=== PATIENT | female | born 1980 | race Caucasian/White ===

== ENCOUNTER → 2020-02-23 15:13 | Outpatient (CLI) | payer OTHER, SELFPAY ==
--- NOTE | ~2020-02-23 | US_ITS ---
US thyroid INDICATION: Follow-up thyroid nodule. Previous benign right and fine-needle aspiration biopsy. TECHNIQUE: Real-time sonographic images of the thyroid gland were obtained. COMPARISON: Ultrasound dated 10/24/2018 FINDINGS: The right thyroid lobe measures 6 x 2.6 x 1.5 cm. The left thyroid lobe measures 3.5 x 0.9 x 1.2 cm. There is a dominant solid hyperechoic solid mass which is wider than tall, smooth margins and no internal calcifications measuring 3.7 x 2.2 x 2.5 cm compared with 4 x 3 x 3.3 cm on prior exa mination, TR 3. No discrete left thyroid masses are identified. IMPRESSION: 1. Decreased size of right thyroid mass compared with prior examination. Per clinical history this w as biopsy proven benign. Recommend annual clinical follow-up with repeat sonogram if changes occur on physical examination. Reviewed, dictated and finalized at location A. IMPRESSION: 1. Decreased size of right thyroid mass compared with prior examination. Per c linical history this was biopsy proven benign. Recommend annual clinical follow-up with repeat sonogram if changes occur on ph ysical examination.
== END ==
PROVIDERS: Visit Provider Otolaryngology
DX: E04.1 Nontoxic single thyroid nodule (principal)
CPT/HCPCS: 76536

== ENCOUNTER → 2021-02-27 15:50 | Outpatient (CLI) | payer OTHER, SELFPAY ==
--- NOTE | ~2021-02-27 | US_ITS ---
EXAMINATION: US thyroid DATE: 02/27/2021 16:05 INDICATION: Nontoxic single thyroid nodule. TECHNIQUE: Multiple ultrasound images of the thyroid were obtained. COMPARISON: Ultrasound 02/23/2020, 10/24/2018 FINDINGS: The right thyroid lobe measures 5.8 x 2.8 x 3.0 cm. The left thyroid lobe measures 3.7 x 0.6 x 1.5 c m. In the right thyroid lobe, there is a 3.8 cm solid, hypoechoic, [id number]-ntug-rngi nodule with yoshi h margin without echogenic foci (TI-RADS TR4), stable from 11/09/18 when biopsy was benign. IMPRESSION: 1. Stable right thyroid nodule, likely benign. Reviewed, dictated and finalized at location A.
== END ==
PROVIDERS: Visit Provider Otolaryngology
DX: E04.1 Nontoxic single thyroid nodule (principal)
CPT/HCPCS: 76536

== ENCOUNTER → 2021-12-01 10:22 | Outpatient (CLI) | payer OTHER, SELFPAY ==
--- NOTE | ~2021-12-01 | MM_ITS ---
EXAMINATION: MM screening richelle BI w mary kay HISTORY: Screening TECHNIQUE: Craniocaudal and mediolateral oblique 3-D tomosynthesis images were obtained and synthetic 2-D images were generated. CAD analysis was submitted and interpreted. COMPARISON: No prior mammogram is available for comparison at this institution. BREAST PARENCHYMAL COMPOSITION: The breasts are heterogeneously dense, which may obscure small masses . FINDINGS: There is no evidence of suspicious mass, calcification, or architectural distortion to sugg est malignancy in either breast. There has been no suspicious interval change. IMPRESSION: 1. No mammographic evidence of malignancy. 2. Recommend routine screening mammography in one year. BI-RADS Category 1: Negative Reviewed, dictated and finalized at location A.
== END ==
PROVIDERS: PCP Obstetrics & Gynecology; Visit Provider Obstetrics & Gynecology
DX: Z12.31 Encounter for screening mammogram for malignant neoplasm of breast (principal)
CPT/HCPCS: 77063; 77067

== ENCOUNTER → 2022-12-17 16:07 | Outpatient (CLI) | payer OTHER, SELFPAY ==
--- NOTE | ~2022-12-17 | MM_ITS ---
EXAMINATION: MM screening richelle BI w mary kay HISTORY: Screening mammogram TECHNIQUE: Craniocaudal and mediolateral oblique 3-D tomosynthesis images were obtained and synthetic 2-D images were generated. CAD analysis was submitted and interpreted. COMPARISON: 12/01/2021 BREAST PARENCHYMAL COMPOSITION:The breasts are heterogeneously dense, which may obscure small masses. FINDINGS: Stable microcalcifications at the outer right breast. No suspicious mass, calcification, or architectural distortion are identified in either breast to suggest malignancy. There has been no villatoro spicious interval change. IMPRESSION: No mammographic evidence of malignancy. Recommend routine screening mammography in one year. BI-RADS Category 2: Benign finding(s). Reviewed, dictated and finalized at location .
== END ==
PROVIDERS: PCP Obstetrics & Gynecology; Visit Provider Obstetrics & Gynecology
DX: Z12.31 Encounter for screening mammogram for malignant neoplasm of breast (principal)
CPT/HCPCS: 77063; 77067

== ENCOUNTER → 2023-03-03 15:48 | Outpatient (CLI) | payer OTHER, SELFPAY ==
--- NOTE | ~2023-03-03 | US_ITS ---
EXAMINATION: US thyroid DATE: 03/03/2023 16:24 INDICATION: Nontoxic single thyroid nodule. TECHNIQUE: Multiple ultrasound images of the thyroid were obtained. COMPARISON: Ultrasound 02/27/2021, 10/24/18 FINDINGS: The right thyroid lobe measures 6.8 x 2.6 x 2.7 cm. The left thyroid lobe measures 3.5 x 1.0 x 1.0 c m. In the right thyroid lobe, there is a 4.7 x 2.6 x 3.2 cm solid, hypoechoic, wider than tall nodul e with smooth margin without echogenic foci (TI-RADS TR4) that measured 4.0 x 3.0 x 3.3 cm on 10/24/18. Biopsy on 11/09/18 was benign. IMPRESSION: 1. Stable benign right thyroid nodule. Reviewed, dictated and finalized at location A.
== END ==
PROVIDERS: PCP Obstetrics & Gynecology; Visit Provider Otolaryngology
DX: E04.1 Nontoxic single thyroid nodule (principal)
CPT/HCPCS: 76536

== ENCOUNTER 2024-04-06 15:02 | Outpatient (CLI) | payer OTHER, SELFPAY ==
--- NOTE | ~2024-04-06 | MM_ITS ---
EXAMINATION: MM screening richelle BI w mary kay HISTORY: Screening mammogram TECHNIQUE: Craniocaudal and mediolateral oblique 3-D tomosynthesis images were obtained and synthetic 2-D images were generated. CAD analysis was submitted and interpreted. COMPARISON: 12/17/2022, 12/01/2021 BREAST PARENCHYMAL COMPOSITION:Dense: The breasts are extremely dense, which lowers the sensitivity o f mammography. FINDINGS: No suspicious mass, calcification, or architectural distortion are identified in either dash ast to suggest malignancy. There has been no suspicious interval change. IMPRESSION: No mammographic evidence of malignancy. Recommend routine screening mammography in one year. BI-RADS Category 1: Negative Reviewed, dictated and finalized at location M.
== END 2024-04-06 15:03 | disposition home or self-care (01) ==
LOC: MICIMG 15:03
PROVIDERS: PCP Obstetrics & Gynecology; Visit Provider Obstetrics & Gynecology
DX: Z12.31 Encounter for screening mammogram for malignant neoplasm of breast (principal)
CPT/HCPCS: 77063; 77067

== ENCOUNTER 2025-05-07 07:04 | Day surgery (SDC) | payer OTHER, SELFPAY ==
--- OUTSIDE RECORDS SUMMARY | 2025-04-24 12:30 | XMS_ITS ---
Author Organization [facility] ([address]) Address [address] [place] [address] Care Team Providers Care Cook Tortilla Name Role Phone Brant Rod Primary Care Provider Manju Abreu Unavailable [phone] Bear Faustin Unavailable [phone] REASON FOR VISIT SCIT (Aeroallergen) Social History Sex Assigned At : Social History Observation Description Sex Assigned At Female Encounters Encounter Location Date Provider Diagnosis [facility] [address] [place] [address] 04/24/2025 Bear Faustin Plan Of Treatment Next Appt Details Provider Name:Bear Faustin , 05/29/2025 09:30:00 AM, [address], [address], Provider Name:Manju babcock, 07/16/2025 07:30:00 AM, [address], [place], [address], Progress Notes * Jennifer PARKDOB:[birth year] (44 yo F)Acc No.[id number]:04/24/2025 SCIT-Aeroallergen Patient: yCndi OLIVEROSbeth Provider: Jose Faustin MD :1980 A ge:44 Y S ex:Female Date:04/24/2025 Address:[address] [place], [place] [id number] Pcp:Rod Guo Subjective: * Chief Complaints: * 1 . SCIT (Aeroallergen). * Medical History: Objective: * Vitals: Assessment: Plan: * Treatment: * Billing Information: * Visit Code: * Procedure Codes: * Electronic signature of Patsadiq Faustin MD, FAAAAI on 05/07/2025 at 07:07 AM CDT Sign off status: Pending * Provider: Jose Faustin MD Date: 0 04/24/2025 Generated for Fahadi idalmis/Ashley/eTgayathrismitting on: 1 07:07 AM CDT
[2025-05-07] VITALS (12 sets, daily range): BP systolic 87–118; BP diastolic 40–72; PULSE 68–95; RESP 12–20; TEMP 36.4–37; O2SAT 96–100
--- NOTE | ~2025-05-07 | CT_ITS ---
EXAMINATION: CT abdomen pelvis w con DATE: 05/07/2025 08:30 INDICATION: Right lower quadrant abdominal pain. TECHNIQUE: Computed tomography (CT) of the abdomen and pelvis was performed with 100 mL Omnipaque 350 intravenous contrast. Automated exposure control and iterative reconstruction technique were employed. The dose-length product was 194.94 mGy-cm. COMPARISON: None. FINDINGS: The visualized portions of the lung bases are clear without pneumonia or pleural effusion. The heart size is normal. No pericardial effusion. The liver, gallbladder, spleen, pancreas, adrenal glands, and kidneys are normal. There is an intrauterine device in expected position. There are appendicoliths in the appendix, which is fluid-filled and dilated to 15 mm with surrounding fat stranding, consistent with appendicitis. There is physiologic fluid in the pelvis. There are no pathologically enlarged lymph nodes. There is mild lumbar spondylosis. IMPRESSION: 1. Acute appendicitis. Reviewed, dictated and finalized at location E. IMPRESSION: 1. Acute appendicitis.
--- OUTSIDE RECORDS SUMMARY | 2025-05-07 07:07 | XMS_ITS | Patient Health Record ---
Author Organization [facility] [employer] [place] ([address]) Address [address] [place] [address] Care Team Providers Care Wood Cabinetmaker Name Role Phone Rod Guo Primary Care Provider Manju Abreu Unavailable [phone] Bear Faustin Unavailable [phone] Allergies No Known Allergies Reason For Referral No Information Medications Medication SIG (Take, Route, Frequency, Duration) Notes Start Date End Date Status Auvi-Q 0.3 MG/0.3ML as directed intramuscularly once; Duration: 30 days Active FEXOFENADINE HYDROCHLORIDE 180 mg 1 tab(s) orally twice a day; Duration: 90 days Active Mirena (52 MG) 52 MG 1 EA BY INTRAUTERINE ADMINISTRATION ONCE; Duration: 1 DOSE(S) *Please review and pick correct strength-formula tion from [employer] options. If intended option is not shown, discontinue and re-order from Quick Search* Active NASAL WASHES N/A as directed intranasally as needed; Duration: 1 days Active PROzac 10 MG 1 cap(s) orally once a day; Duration: 30 day(s) Active AUVI -Q 0.3 mg as directed intramuscularly once; Duration: 30 days Active Famotidine 20 MG 1 tab(s) orally 2 times a day 11/30/2023 Active FISH OIL 1000 mg 1 cap(s) orally once a day Active SIT (TRADITIONAL) variable per schedule SC per schedule; Duration: to be determined Active Lessina 0.1-20 MG-MCG 1 tab(s) orally once a day; Duration: 28 day(s) Not-Taking VITAMIN D3 50 mcg 1 tab(s) orally once a day Active Famotidine 20 MG 1 tablet Orally Twice a day; Duration: 90 days Active Azelastine HCl 137 MCG/SPRAY 2 spray(s) intranasally 2 times a day; Duration: 30 day(s) Not-Taking MULTIVITAMIN Multiple Vitamins 1 tab(s) orally once a day Active Fluticasone Propionate 50 MCG/ACT 1 spray in each nostril Nasally Twice a day; Duration: 30 days Active VANICREAM MOISTURIZING CREAM N/A as necessary Apply to external surfaces as often as needed to face, hands, feet or body For daily use by the entire family; Duration: 30 day(s) Active Collagen Active VANICREAM GENTLE FACIAL CLEANSER for Sensitive Skin apply to face as you would soap and rinse off thoroughly topically daily; Duration: 30 day(s) Active Vitamin D3 50 MCG 1 TAB(S) ORALLY ONCE A DAY *Please review and pick correct strength-formula tion from [employer] options. If intended option is not shown, discontinue and re-order from Quick Search* Active VANICREAM LITE LOTION - 1 bella applied topically 2 times a day; Duration: 30 day(s) Active Multivitamin - 1 tab(s) orally once a day Active PATADAY 0.2% 1 gtt in each affected eye once a day; Duration: 10 day(s) Active Fexofenadine HCl 180 MG 1 tab(s) orally twice a day; Duration: 90 days Active DESONIDE 0.05% 1 bella applied topically bid; Duration: 14 day(s) Active Immunizations Vaccine Route Administration Date Status Comme nts Flucelvax IM Intramuscular 05/19/2021 Administered Flucelvax Unknown 05/02/2022 Administered NOC Flucelevax Quadrivalent Unknown 05/19/2021 Administered Covid 19 (Pfizer) Unknown 10/18/2020 Administered Covid 19 (Pfizer) Unknown 11/10/2020 Administered Covid 19 (Pfizer) Unknown 08/07/2021 Administered Social History Tobacco Use: Social History Observation Description Date Details (start date - stop date) Never Smoker NA - NA Sex Assigned At : Social History Observation Description Sex Assigned At Female Smoking Smart Form: Question Answer Notes Are you a: never smoker Tobacco Control (Standard) Question Answer Notes Tobacco use: Nonsmoker AUDIT-C (Standard) Question Answer Notes Did you have a drink contain ing alcohol in the past year? Yes How often did you have a dri nk containing alcohol in the past year? 2 to 4 times a month (2 points) How many drinks did you have on a typical day when you were drinking in the past year? 1 or 2 drinks (0 point) How often did you have six o r more drinks on one occasion in the past year? Never (0 point) Points 2 Interpretation Negative Problems Problem Type SNOMED Code ICD Code Onset Dates Problem Status W/U Status Risk Notes Problem Eruption of skin (653648517) Rash and other nonspecific skin eruption (R21) Active confirmed Problem Non-toxic single thyroid nodule (690587554) Nontoxic single thyroid nodule (E04.1) Active confirmed Problem Chronic allergic conjunctivitis (85294000) Other chronic allergic conjunctivitis (H10.45) Active confirmed Problem Allergic rhinitis caused by pollen (disorder) (11683674) Allergic rhinitis due to pollen (J30.1) Active confirmed Problem Allergic rhinitis caused by animal hair and dander (188657452466068) Allergic rhinitis due to animal (cat) (dog) hair and dander (J30.81) Active confirmed Problem Allergic rhinitis (18732430) Other allergic rhinitis (J30.89) Active confirmed Problem Contact dermatitis caused by cosmetics (61258216) Irritant contact dermatitis due to cosmetics (L24.3) Active confirmed Problem Dermatitis (557916787) Dermatitis, unspecified (L30.9) Active confirmed Vital Signs Oximetry 99 % 01/15/2025 Blood pressure diastolic 64 mm Hg 01/15/2025 Height 61 in 01/15/2025 Blood pressure systolic 99 mm Hg 01/15/2025 Weight 105.4 lbs 01/15/2025 BMI 19.91 kg/m2 01/15/2025 Encounters Encounter Location Date Provider Diagnosis [facility] [address] [place], [place] [address] [address] [address] 03/27/2025 Bear Faustin Allergic rhinitis du e to pollen J30.1 ; Other allergic rhinitis J30.89 ; Allergic rhinitis due to animal (cat) (dog) hair and dander J30.81 and Other chronic allergic conjunctivitis H10.45 [place] [address] [facility] [address] [phone] 03/20/2025 Bear Faustin Allergic rhinitis du e to pollen J30.1 ; Other allergic rhinitis J30.89 ; Allergic rhinitis due to animal (cat) (dog) hair and dander J30.81 and Other chronic allergic conjunctivitis H10.45 [facility] [address] [place], [place] [address] [address] [address] 02/20/2025 Bear Faustin Allergic rhinitis du e to pollen J30.1 ; Other allergic rhinitis J30.89 ; Allergic rhinitis due to animal (cat) (dog) hair and dander J30.81 and Other chronic allergic conjunctivitis H10.45 [facility] [address] [place], [place] [address] [address] [place] [phone] 01/23/2025 Bear Faustin Allergic rhinitis du e to pollen J30.1 ; Other allergic rhinitis J30.89 ; Allergic rhinitis due to animal (cat) (dog) hair and dander J30.81 and Other chronic allergic conjunctivitis H10.45 [facility] [address] [place], [place] [address] [address] [address] 12/26/2024 Bear Faustin Allergic rhinitis du e to pollen J30.1 ; Other allergic rhinitis J30.89 ; Allergic rhinitis due to animal (cat) (dog) hair and dander J30.81 and Other chronic allergic conjunctivitis H10.45 [facility] [address] [place], [place] [address] [address] [place] [phone] 11/27/2024 Bear Ramin Allergic rhinitis du e to pollen J30.1 ; Other allergic rhinitis J30.89 ; Allergic rhinitis due to animal (cat) (dog) hair and dander J30.81 and Other chronic allergic conjunctivitis H10.45 [facility] [address] [place], [place] [address] [address] [place] [phone] 10/30/2024 Bear Ramin Allergic rhinitis du e to pollen J30.1 ; Other allergic rhinitis J30.89 ; Allergic rhinitis due to animal (cat) (dog) hair and dander J30.81 and Other chronic allergic conjunctivitis H10.45 [facility] [address] [place], [place] [address] [address] [place] [phone] 10/02/2024 Bear Ramin Allergic rhinitis du e to pollen J30.1 ; Other allergic rhinitis J30.89 ; Allergic rhinitis due to animal (cat) (dog) hair and dander J30.81 and Other chronic allergic conjunctivitis H10.45 [facility] [address] [place] [phone] 09/04/2024 Bear Faustin Allergic rhinitis du e to pollen J30.1 ; Other allergic rhinitis J30.89 ; Allergic rhinitis due to animal (cat) (dog) hair and dander J30.81 and Other chronic allergic conjunctivitis H10.[address] [phone] 08/03/2024 Bear Faustin Allergic rhinitis du e to pollen J30.1 ; Other allergic rhinitis J30.89 ; Allergic rhinitis due to animal (cat) (dog) hair and dander J30.81 and Other chronic allergic conjunctivitis H10.[address] [address] 06/26/2024 Bear Faustin Allergic rhinitis du e to pollen J30.1 ; Other allergic rhinitis J30.89 ; Allergic rhinitis due to animal (cat) (dog) hair and dander J30.81 and Other chronic allergic conjunctivitis H10.45 [facility] [address] [place] [phone] 05/24/2024 Bear Faustin Allergic rhinitis du e to pollen J30.1 ; Other allergic rhinitis J30.89 ; Allergic rhinitis due to animal (cat) (dog) hair and dander J30.81 and Other chronic allergic conjunctivitis H10.45 [facility] [address] [place] [phone] 05/01/2025 Bear Faustin Allergic rhinitis du e to pollen J30.1 ; Other allergic rhinitis J30.89 ; Allergic rhinitis due to animal (cat) (dog) hair and dander J30.81 and Other chronic allergic conjunctivitis H10.45 [facility] [address] [place] [phone] 04/03/2025 Bear Faustin Allergic rhinitis du e to pollen J30.1 ; Other allergic rhinitis J30.89 ; Allergic rhinitis due to animal (cat) (dog) hair and dander J30.81 and Other chronic allergic conjunctivitis H10.45 [facility] [address] [facility] [address] [place] [address] 01/15/2025 Manju King Rash and other nonspecific skin eruption R21 ; Allergic rhinitis due to pollen J30.1 ; Dermatitis, unspecified L30.9 ; Allergic rhinitis due to animal (cat) (dog) hair and dander J30.81 ; Other chronic allergic conjunctivitis H10.45 ; Other allergic rhinitis J30.89 and Irritant contact dermatitis due to cosmetics L24.[address] [phone] 12/28/2024 Manju King [address] [phone] 01/15/2025 Manju King Assessments Encounter Date Diagnosis (ICD Code) Assessment Notes Treatment Notes Treatment Clinical Notes Section Notes 05/24/2024 Allergic rhinitis due to pollen (ICD-10 - J30.1) 06/26/2024 Allergic rhinitis due to pollen (ICD-10 - J30.1) 08/03/2024 Allergic rhinitis due to pollen (ICD-10 - J30.1) 09/04/2024 Allergic rhinitis due to pollen (ICD-10 - J30.1) 10/02/2024 Allergic rhinitis due to pollen (ICD-10 - J30.1) 10/30/2024 Allergic rhinitis due to pollen (ICD-10 - J30.1) 11/27/2024 Allergic rhinitis due to pollen (ICD-10 - J30.1) 12/26/2024 Allergic rhinitis due to pollen (ICD-10 - J30.1) 01/15/2025 Allergic rhinitis due to pollen (ICD-10 - J30.1) Jennifer clearly suffers from atopic disease based upon our skin testing and history. - Increased symptoms this Spring and Fall. - Continues on SCIT via MM without issues, continues double premedication. - Not due for SCIT dosing today. - Continue medication regimen as above. - Again discussed increasing SCIT frequency PRN for allergy symptoms. Consider reformulation if symptoms continue to worsen in peak season. If symptoms remain managed, consider holding SCIT as she has now been on MM for just over three years. - Follow-up in 6 months for evaluation and management 01/15/2025 Rash and other nonspecific skin eruption (ICD-10 - R21) Jennifer presents today reporting pruritus on her chest and trunk that comes and goes. Reports if she scratches she develops erythematous welts. She has noticed hot showers worsen her symptoms, otherwise denies clear triggers. She also denies associated symptoms. Symptoms have been occurring > 6 weeks. - Consider dermatographic urticaria vs other. - Jennifer remains taking Dianne QD and Pepcid QD with benefit. Discussed holding Pepcid. - Ordered labs to check for underlying thyroid, mast cell, and autoimmune diseases. Positive DARIN screening, otherwise unremarkable. Jennifer established care with Rheumatology at [facility], reports she was told further work-up was not required. - Continue avoidance of fragrances, dyes and known irritant contact reactions as below. - Discussed journaling and taking photos if symptoms recur 01/23/2025 Allergic rhinitis due to pollen (ICD-10 - J30.1) 02/20/2025 Allergic rhinitis due to pollen (ICD-10 - J30.1) 03/20/2025 Allergic rhinitis due to pollen (ICD-10 - J30.1) 03/27/2025 Allergic rhinitis due to pollen (ICD-10 - J30.1) 04/03/2025 Allergic rhinitis due to pollen (ICD-10 - J30.1) 05/01/2025 Allergic rhinitis due to pollen (ICD-10 - J30.1) 05/01/2025 Other allergic rhinitis (ICD-10 - J30.89) 04/03/2025 Other allergic rhinitis (ICD-10 - J30.89) 03/27/2025 Other allergic rhinitis (ICD-10 - J30.89) 03/20/2025 Other allergic rhinitis (ICD-10 - J30.89) 02/20/2025 Other allergic rhinitis (ICD-10 - J30.89) 01/23/2025 Other allergic rhinitis (ICD-10 - J30.89) 01/15/2025 Dermatitis, unspecified (ICD-10 - L30.9) Continues working avoidance of known irritant contact reactions. Continue moisturization. Apply desonide PRN, mix with vaseline. Eyelids remain improved 12/26/2024 Other allergic rhinitis (ICD-10 - J30.89) 11/27/2024 Other allergic rhinitis (ICD-10 - J30.89) 10/30/2024 Other allergic rhinitis (ICD-10 - J30.89) 10/02/2024 Other allergic rhinitis (ICD-10 - J30.89) 09/04/2024 Other allergic rhinitis (ICD-10 - J30.89) 08/03/2024 Other allergic rhinitis (ICD-10 - J30.89) 06/26/2024 Other allergic rhinitis (ICD-10 - J30.89) 05/24/2024 Other allergic rhinitis (ICD-10 - J30.89) 05/24/2024 Allergic rhinitis due to animal (cat) (dog) hair and dander (ICD-10 - J30.81) 06/26/2024 Allergic rhinitis due to animal (cat) (dog) hair and dander (ICD-10 - J30.81) 08/03/2024 Allergic rhinitis due to animal (cat) (dog) hair and dander (ICD-10 - J30.81) 09/04/2024 Allergic rhinitis due to animal (cat) (dog) hair and dander (ICD-10 - J30.81) 10/02/2024 Allergic rhinitis due to animal (cat) (dog) hair and dander (ICD-10 - J30.81) 10/30/2024 Allergic rhinitis due to animal (cat) (dog) hair and dander (ICD-10 - J30.81) 11/27/2024 Allergic rhinitis due to animal (cat) (dog) hair and dander (ICD-10 - J30.81) 12/26/2024 Allergic rhinitis due to animal (cat) (dog) hair and dander (ICD-10 - J30.81) 01/15/2025 Allergic rhinitis due to animal (cat) (dog) hair and dander (ICD-10 - J30.81) Follow allergen avoidance, meds and continue SCIT as an adjunctive treatment to current regimen 01/23/2025 Allergic rhinitis due to animal (cat) (dog) hair and dander (ICD-10 - J30.81) 02/20/2025 Allergic rhinitis due to animal (cat) (dog) hair and dander (ICD-10 - J30.81) 03/20/2025 Allergic rhinitis due to animal (cat) (dog) hair and dander (ICD-10 - J30.81) 03/27/2025 Allergic rhinitis due to animal (cat) (dog) hair and dander (ICD-10 - J30.81) 04/03/2025 Allergic rhinitis due to animal (cat) (dog) hair and dander (ICD-10 - J30.81) 05/01/2025 Allergic rhinitis due to animal (cat) (dog) hair and dander (ICD-10 - J30.81) 05/01/2025 Other chronic allergic conjunctivitis (ICD-10 - H10.45) 04/03/2025 Other chronic allergic conjunctivitis (ICD-10 - H10.45) 03/27/2025 Other chronic allergic conjunctivitis (ICD-10 - H10.45) 03/20/2025 Other chronic allergic conjunctivitis (ICD-10 - H10.45) 02/20/2025 Other chronic allergic conjunctivitis (ICD-10 - H10.45) 01/23/2025 Other chronic allergic conjunctivitis (ICD-10 - H10.45) 01/15/2025 Other chronic allergic conjunctivitis (ICD-10 - H10.45) Given ocular signs and symptoms, I encouraged allergy avoidance measures and meds as above. Will add intraocular antihistamine/mast cell stabilizer, PRN and continue SCIT as an adjunctive measure 12/26/2024 Other chronic allergic conjunctivitis (ICD-10 - H10.45) 11/27/2024 Other chronic allergic conjunctivitis (ICD-10 - H10.45) 10/30/2024 Other chronic allergic conjunctivitis (ICD-10 - H10.45) 10/02/2024 Other chronic allergic conjunctivitis (ICD-10 - H10.45) 09/04/2024 Other chronic allergic conjunctivitis (ICD-10 - H10.45) 08/03/2024 Other chronic allergic conjunctivitis (ICD-10 - H10.45) 06/26/2024 Other chronic allergic conjunctivitis (ICD-10 - H10.45) 05/24/2024 Other chronic allergic conjunctivitis (ICD-10 - H10.45) 01/15/2025 Other allergic rhinitis (ICD-10 - J30.89) Follow allergen avoidance, meds and continue SCIT as an adjunctive treatment to current regimen 01/15/2025 Irritant contact dermatitis due to cosmetics (ICD-10 - L24.3) S/p patch testing with + results to : 2+ 2-Mercaptobenzothiaz ole, 1+ Colophonium/ (Colophony),1+ p-Phenylenediamine (PPD), 1+ Cinnamal/ (Cinnamic Aldehyde), 3+ Amerchol L, 1+ Carba Mix,, IR Potassium Dichromate, IR Myroxylon Pereirae Resin/ (Balsam of Emeli), 1+ Tocopherol/ DL alpha tocopherol, IR Glyceryl Monothioglycolate (GMTG), IR Toluene sulfonamide Formaldehyde Resin, 1+ Budesonide, 1+ Disperse Yellow 3, 1+ DMDM Hydantoin, IR Benzyl Alcohol, 2+ Hydroperoxies of Limone, 1+ Lidocaine, 1+ Benzoylperoxide, IR Hydroperoxides of Linalool, IR Propylene Glycol - Continues working on avoidance, will now re-enter data into [facility] database 01/15/2025 Other Plan Of Treatment Next Appt Details Provider Name:Bear Faustin , 05/29/2025 09:30:00 AM, [address] [facility], [place], [address], Provider Name:Manju babcock, 07/16/2025 07:30:00 AM, [address] [facility], [address], [place], [address], Insurance Providers Payer Name Payer Address Payer Phone Subscriber Number Group Number Insured Name Patient Relationship to Insured Coverage Start Date Coverage End Date [facility] [address] [address] [place] [id number] [phone] [id number] [place] Spouse - patient is the spouse of the insured Medical (General) History Medical History History ICD Code Angioneurotic edema, initial encounter T 78.3XXA Nontoxic single thyroid nodule E04.1 Eczema 692.9 Allergic rhinitis due to pollen J30.1 Allergic rhinitis due to animal (cat) (d og) hair and dander J30.81 Other chronic allergic conjunctivitis H1 0.45 Other allergic rhinitis J30.89 Irritant contact dermatitis due to vickey tics L24.3 Surgical History Surgery Date(Month/Year) tonsillectomy 1999
[2025-05-07 07:28] LABS: BEDSIDEPREGUCG Negative (Negative)
[2025-05-07 07:40] LABS: Add Urine Microscopic? NO; Appearance Urine Clear (Clear); Glucose Urine UA Negative (Negative); Leukocyte Esterase Ur Negative LEU/UL (Negative); Nitrate Urine Negative (Negative); Specific Grav Ur 1.020 (1.001-1.035)
[2025-05-07 07:45] LABS: Hematocrit 39.8 % (37.0-47.0); Hemoglobin 12.9 g/dL (12.0-15.0); Immature Granulocyte Percent A 0.4 % (0-0.5); Lymphocytes Absolute Auto 1.67 K/mm3 (0.9-3.2); Mean Corpuscular HGB Conc 32.4 g/dl (32-36); Mean Corpuscular Hemoglobin 29.1 pg (26-34); Mean Corpuscular Volume 89.8 fl (80-100); Nucleated Red Blood Cells Absolute Auto 0.000 K/mm3 (0.0-0.012); Nucleated Red Blood Cells Perc 0.0 % (0.0-0.2); Platelet Count Result 278 k/mm3 (150-375); Red Blood Count 4.43 M/mm3 (4.2-5.4); White Blood Count 13.2 K/mm3 (4.5-10.0)
[2025-05-07 07:53] LABS: Alanine Aminotransferase 17 U/L (6-35); Albumin Level 3.9 g/dL (3.5-5.1); Alkaline Phosphatase 58 U/L (38-126); Anion Gap 7 mmol/L (4-12); Aspartate Amino Transferase 22 U/L (14-36); Bilirubin,Total 0.8 mg/dL (0.2-1.3); Blood Urea Nitrogen 16 mg/dL (7-17); Calcium 8.7 mg/dL (8.4-10.2); Carbon Dioxide 26 mmol/L (22-30); Chloride 103 mmol/L (98-107); Estimated CRCL calculation 66 ml/min; Estimated Glomerular Filt Rate > 60; Glucose 90 mg/dL (65-110); Lipase 81 U/L (23-300); Potassium 3.7 mmol/L (3.4-5.0); Sodium 136 mmol/L (137-145); Total Protein 7.0 g/dL (6.3-8.2)
--- NOTE | 2025-05-07 08:11 | ED.ABDPAIN ---
HPI - Abdominal Pain General Chief Complaint: Abdominal Pain Stated Complaint: abd pain Time Seen by Provider: 05/07/25 07:51 Source: patient and family ( and mother) Mode of arrival: ambulatory Limitations: no limitations History of Present Illness HPI narrative: Patient presents with report of abdominal pain over the past 3-4 days. It started with epigastric abdominal pain associated with nausea but no vomiting. The pain is now settled into her right lower quadrant. She had 1 episode where she reports that her urethra hurt although denies any guadalupe dysuria otherwise. She denies any vaginal discharge or bleeding. She has amenorrhea in the setting of IUD placement earlier this year. Denies any back pain. Last bowel movement was yesterday and she denies any diarrhea, constipation, or bloody stools. No fevers. She does have an appetite. No history of kidney stone. She denies any hematuria, urgency or frequency. No previous abdominal surgery. She still has her appendix. She reports this pain has never happened before. Related Data Home Medications ?Medication ?Instructions ?Recorded ?Confirmed ?Last Taken ?Type fexofenadine-pseudoephedrine ER 1 tablet PO DAILY 02/18/23 02/18/23 Unknown History 180 mg-240 mg tablet,ext.release 24 hr (Dainne-D 24 Hour) Allergies Allergy/AdvReac Type Severity Reaction Status Date / Time No Known Allergies Allergy Verified 05/07/25 07:10 [facility] Past Medical History Medical History Allergies IUD (intrauterine device) in place Family History Family History Father Afib Sibling Asthma Sibling Brain cancer Social History Social History Social History: Smoking status: Never smoker Alcohol intake: current Substance use: never Substance use type: does not use Lack of Transportation: No Lack of Food: Never True Current Housing: I Have Housing Concerned About Future Housing: No Difficulty Paying Gas/Electric Bills: No Difficulty Paying for Meds: No Currently Unemployed: No Education: Associate Degree Difficulty w/ Childcare or Family Care: No Living arrangements: with family Additional living arrangements comments: Exam Narrative: GENERAL: Well-appearing, well-nourished, and in no acute distress. HEAD: Normocephalic, atraumatic. EYES: Non injected, non icteric ENT: Nares clear, no rhinorrhea or epistaxis. Gross auditory acuity intact. NECK: Supple. No meningismus. CHEST: Speaking in full sentences. No respiratory distress. HEART: Regular rate and rhythm. . ABDOMEN: Soft, nondistended. No rigidity or guarding. McBurney point tenderness. Rovsing sign negative. Localized peritonitis but without being frankly peritoneal. EXTREMITIES: Normal range of motion. No lower extremity edema. SKIN: Warm, dry, no rash. NEURO: No focal deficits. Alert and oriented. Answering questions. Following commands. Normal speech without aphasia or dysarthria. PSYCH: Normal mood and affect. Course Vital Signs Vital signs: Vital Signs Temperature 97.6 F 05/07/25 07:07 Pulse Rate 77 05/07/25 07:07 Respiratory Rate 17 05/07/25 07:07 Blood Pressure 118/40 L 05/07/25 07:07 Pulse Oximetry 99 05/07/25 07:07 Oxygen Delivery Room Air 05/07/25 07:07 Temperature 97.6 F 05/07/25 07:07 Pulse Rate 69 05/07/25 11:23 Respiratory Rate 16 05/07/25 11:23 Blood Pressure 94/68 L 05/07/25 11:23 Pulse Oximetry 100 05/07/25 11:23 Oxygen Delivery Room Air 05/07/25 07:07 MDM - Abdominal Pain MDM Narrative Medical decision making narrative: Patient presents with report of abdominal pain of the past 3-4 days. It started as epigastric but now has settled into the right lower quadrant. Initially associated with nausea. In the emergency department she is afebrile with vital signs notable for low diastolic blood pressure i.e. hypotension. Mean arterial pressure is 66mmHg. 1L IV fluids ordered. She has a leukocytosis with a left shift. test negative. Ondansetron morphine were ordered but patient declined. States that as long she does not move she does not have pain. CT shows acute appendicitis. Patient made NPO. Patient is informed. She is hopeful she can go same day if possible. On-call general surgeon Dr Yang does evaluate her at bedside; Carmelsyn ordered. He will discuss with OR team about the timing of her surgical intervention but is hopeful she can go home post-procedurally. Remains in the ED until taken to pre-op. Remains stable during this. Differential Diagnosis Differential diagnosis: Likely abdominal pain, acute appendicitis, calculus of kidney, constipation, diverticulitis, endometriosis, small bowel obstruction and other (ovarian pathology considered) Lab Data Attestation: I reviewed the patient's lab results. Lab results narrative: Lipase normal. Urinalysis unremarkable Chemistry only with very mild hyponatremia 05/07/25 07:27 05/07/25 07:27 Labs: Lab Results 05/07/25 05/07/25 Range/Units 07: 07:27 WBC 13.2 H (4.5-10.0) K/mm3 RBC 4.43 (4.2-5.4) M/mm3 Hgb 12.9 (12.0-15.0) g/dL Hct 39.8 (37.0-47.0) % MCV 89.8 (80-100) fl MCH 29.1 (26-34) pg MCHC 32.4 (32-36) g/dl RDW 12.2 (11.5-14.5) % Plt Count 278 (150-375) k/mm3 MPV 11.3 H (7.4-10.4) fl Immature Gran % (Auto) 0.4 (0-0.5) % Neut % (Auto) 77.5 H (45.5-73.1) % Lymph % (Auto) 12.6 L (18.3-44.2) % [place] % (Auto) 7.9 (2.6-8.5) % Eos % (Auto) 1.1 (0-4.4) % Baso % (Auto) 0.5 (0.2-1.2) % Lymph # (Auto) 1.67 (0.9-3.2) K/mm3 [place] # (Auto) 1.0 H (0.1-0.6) K/mm3 Eos # (Auto) 0.2 (0-0.3) K/mm3 Baso # (Auto) 0.1 (0.0-0.1) K/mm3 Abs Immat Gran (auto) 0.05 H (0.00-0.031) K/mm3 Absolute Neuts (auto) 10.3 H (1.3-6.7) K/mm3 Absolute Nucleated RBC 0.000 (0.0-0.012) K/mm3 Nucleated RBC % 0.0 (0.0-0.2) % Sodium 136 L (137-145) mmol/L Potassium 3.7 (3.4-5.0) mmol/L Chloride 103 (98-107) mmol/L Carbon Dioxide 26 (22-30) mmol/L Anion Gap 7 (4-12) mmol/L BUN 16 (7-17) mg/dL Creatinine 0.71 (0.7-1.0) mg/dL Estim Creat Clear Calc 66 ml/min Estimated GFR > 60 (59 - ) Glucose 90 (65-110) mg/dL Calcium 8.7 (8.4-10.2) mg/dL Total Bilirubin 0.8 (0.2-1.3) mg/dL AST 22 (14-36) U/L ALT 17 (6-35) U/L Alkaline Phosphatase 58 (38-126) U/L Total Protein 7.0 (6.3-8.2) g/dL Albumin 3.9 (3.5-5.1) g/dL Lipase 81 (23-300) U/L Urine Color Yellow (Yellow) Urine Appearance Clear (Clear) Urine pH 6.5 (5.0-9.0) Ur Specific [place] 1.020 (1.001-1.035) Urine Protein Negative (Negative) mg/dL Urine Glucose (UA) Negative (Negative) mg/dL Urine Ketones Negative (Negative) mg/dL Ur Blood (Man) Negative (Negative) Urine Nitrate Negative (Negative) Urine Bilirubin Negative (Negative) Urine Urobilinogen 0.2 (<2.0) mg/dL Leukocyte Esterase Rfl Negative (Negative) MOISÉS/UL POC Urine HCG, Qual Negative (Negative) Imaging Data Radiologist's impression: ITS Impressions Abdomen/Pelvis CT 05/07/25 08:34 IMPRESSION: 1. Acute appendicitis. Discharge Plan Discharge Clinical Impression: Acute appendicitis, Leukocytosis, Abdominal pain, RLQ Patient Disposition: Still a Patient Condition: Stable
[2025-05-07] MEDS: SODIUM CHLORIDE 0.9% IV 1,000 ML 999 ML IV CONT (08:18)
--- NOTE | 2025-05-07 09:12 | PM.IMHP ---
H&P: HPI History of Present Illness Date/Time: 05/07/25 09:12 Chief Complaint: Acute appendicitis Narrative: The patient is a 44-year-old female presenting to the emergency department complaining of severe right lower quadrant. Patient reports this episode started late last week and has progressively worsened. The patient reports the pain was initially diffuse, however has now localized to the right lower quadrant. The patient reports associated poor, nausea. Patient denies any previous similar symptomatology. Workup in the emergency department, including imaging, is significant for acute appendicitis. Review of Systems Review of Systems: All systems reviewed & are unremarkable except as noted in HPI and below PMFSH Past Medical History Medical History Allergies IUD (intrauterine device) in place Family History Family History Father Afib Sibling Asthma Sibling Brain cancer Social History Social History Social History: Smoking status: Never smoker Alcohol intake: current Substance use: never Substance use type: does not use Lack of Transportation: No Lack of Food: Never True Current Housing: I Have Housing Concerned About Future Housing: No Difficulty Paying Gas/Electric Bills: No Difficulty Paying for Meds: No Currently Unemployed: No Education: Associate Degree Difficulty w/ Childcare or Family Care: No Living arrangements: with family Additional living arrangements comments: Meds Home Medications and Allergies Home Medications ?Medication ?Instructions ?Recorded ?Confirmed ?Type azelastine 137 mcg (0.1 %) nasal 1 spray intranasal Q12H #30 mL 02/18/21 02/18/23 Rx spray fluticasone propionate 50 See Rx Instructions .Route 10/20/21 02/18/23 Rx mcg/actuation nasal .COMPLEX #16 grams spray,suspension fexofenadine-pseudoephedrine ER 1 tablet PO DAILY 02/18/23 02/18/23 History 180 mg-240 mg tablet,ext.release 24 hr (Dianne-D 24 Hour) Allergies Allergy/AdvReac Type Severity Reaction Status Date / Time No Known Allergies Allergy Verified 05/07/25 07:10 Vital Signs Vital Signs - 24 hr 05/07/25 07:07 05/07/25 09:02 Temperature 36.4 C Pulse Rate 77 78 Respiratory Rate 17 16 Blood Pressure 118/40 L 100/72 Pulse Oximetry 99 100 Oxygen Delivery Room Air Exam Const: General: cooperative, comfortable and no acute distress HENMT: Head: normal to inspection, normocephalic and atraumatic Eyes: General: appearance normal, both eyes and all related structures Neck: Neck: normal visual inspection, full ROM and no lymphadenopathy Resp: Auscultation: clear to auscultation bilaterally Cardio: Rate: regular rate Rhythm: regular rhythm GI: GI Palp: Yes abdominal tenderness, Yes Soft to palpation, Yes Tenderness to palpation present (GI) and Yes Guarding due to palpation present (GI) Other: Focal tenderness to palpation in right quadrant with voluntary guarding Skin: General skin exam: normal color and no rashes or lesions noted Neuro: General: patient oriented x3 and CN's II-XI intact bilaterally Extrem: General: normal to inspection and full ROM H&P: Results Labs Labs: Short CBC 05/07/25 Range/Units 07:27 WBC 13.2 H (4.5-10.0) K/mm3 Hgb 12.9 (12.0-15.0) g/dL Hct 39.8 (37.0-47.0) % Plt Count 278 (150-375) k/mm3 BMP 05/07/25 07:27 Sodium 136 L Potassium 3.7 Chloride 103 Carbon Dioxide 26 BUN 16 Creatinine 0.71 Glucose 90 Calcium 8.7 Liver Function 05/07/25 Range/Units 07:27 Total Bilirubin 0.8 (0.2-1.3) mg/dL AST 22 (14-36) U/L ALT 17 (6-35) U/L Alkaline Phosphatase 58 (38-126) U/L Albumin 3.9 (3.5-5.1) g/dL Urine 05/07/25 Range/Units 07:27 Urine Color Yellow (Yellow) Urine Appearance Clear (Clear) Urine pH 6.5 (5.0-9.0) Ur Specific [place] 1.020 (1.001-1.035) Urine Protein Negative (Negative) mg/dL Urine Glucose (UA) Negative (Negative) mg/dL Imaging CT scan - abdomen: My impression: Acute appendicitis, uncomplicated Assessment and Plan Assessment and plan (1) Acute appendicitis: Code(s): K35.80 - Unspecified acute appendicitis Status: Acute Assessment and Plan: Discussion with patient and regarding management of appendicitis, they would like to proceed with appendectomy, was set up for urgent appendectomy at this time, NPO, IV antibiotics
--- NOTE | 2025-05-07 09:16 | WPDHPUPDATE1 ---
History and Physical Update Update Date/Time: 05/07/25 09:16 History and Physical has been reviewed, including an updated exam of the patient. There are NO changes in the patient's condition. Risks, benefits, and alternatives have been discussed and questions answered. Patient agrees to proceed with procedure.
[2025-05-07] MEDS: PIPERACILLIN/TAZOBACTAM SOD 4.5 GM in SODIUM CHLORIDE 0.9% IV 100 ML 200 ML IVPB (09:24)
--- NOTE | 2025-05-07 11:35 | PC.NURSE ---
Miryam in pre-op called to inform this RN that they are ready for patient
[2025-05-07] MEDS: LACTATED RINGERS 1,000 ML 30 ML IV CONT ×2 (11:50→14:43)
--- NOTE | 2025-05-07 13:09 | P.PNAN_ITS ---
Anes - Initial Pre Proc Eval Procedure: Operation Date: 05/07/25 13:30 Proposed Procedures p Laparoscopic Appendectomy - Luz Yang MD Date/Time: 05/07/25 13:09 Surgeon: Luz Yang MD Pre Op Diagnosis: abd pain Patient Data Age: 44 Gender: F Height: 1.55 m Weight: 47.7 kg Last Vital Signs Temp 37.0 C 05/07/25 11:50 Pulse 72 05/07/25 11:50 Resp 16 05/07/25 11:50 BP 105/54 L 05/07/25 11:50 Pulse Ox 100 05/07/25 11:50 O2 Del Method Room Air 05/07/25 11:50 Allergies Allergy/AdvReac Type Severity Reaction Status Date / Time lidocaine Allergy Unknown Verified 05/07/25 12:08 Home Medications ?Medication ?Instructions ?Recorded ?Confirmed ?Type azelastine 137 mcg (0.1 %) nasal 1 spray intranasal Q1 2H #30 mL 02/18/21 02/18/23 Rx spray fluticasone propionate 50 See Rx Instructions .Route 0 10/20/21 02/18/23 Rx mcg/actuation nasal .COMPLEX #16 grams spray,suspension fexofenadine-pseudoephedrine ER 1 tablet PO DAILY 01/2402/18/23 History 180 mg-240 mg tablet,ext.release 24 hr (Dianne-D 24 Hour) Laboratory Tests 05/07/25 05/07/25 07:25 07:27 WBC 13.2 H K/mm3 (4.5-10.0) RBC 4.43 M/mm3 (4.2-5.4) Hgb 12.9 g/dL (12.0-15.0) Hct 39.8 % (37.0-47.0) MCV 89.8 fl (80-100) MCH 29.1 pg (26-34) MCHC 32.4 g/dl (32-36) RDW 12.2 % (11.5-14.5) Plt Count 278 k/mm3 (150-375) MPV 11.3 H fl (7.4-10.4) Immature Gran % (Auto) 0.4 % (0-0.5) Neut % (Auto) 77.5 H % (45.5-73.1) Lymph % (Auto) 12.6 L % (18.3-44.2) [place] % (Auto) 7.9 % (2.6-8.5) Eos % (Auto) 1.1 % (0-4.4) Baso % (Auto) 0.5 % (0.2-1.2) Lymph # (Auto) 1.67 K/mm3 (0.9-3.2) [place] # (Auto) 1.0 H K/mm3 (0.1-0.6) Eos # (Auto) 0.2 K/mm3 (0-0.3) Baso # (Auto) 0.1 K/mm3 (0.0-0.1) Abs Immat Gran (auto) 0.05 H K/mm3 (0.00-0.031) Absolute Neuts (auto) 10.3 H K/mm3 (1.3-6.7) Absolute Nucleated RBC 0.000 K/mm3 (0.0-0.012) Nucleated RBC % 0.0 % (0.0-0.2) Sodium 136 L mmol/L (137-145) Potassium 3.7 mmol/L (3.4-5.0) Chloride 103 mmol/L (98-107) Carbon Dioxide 26 mmol/L (22-30) Anion Gap 7 mmol/L (4-12) BUN 16 mg/dL (7-17) Creatinine 0.71 mg/dL (0.7-1.0) Estim Creat Clear Calc 66 ml/min Estimated GFR > 60 (59 - ) Glucose 90 mg/dL (65-110) Calcium 8.7 mg/dL (8.4-10.2) Total Bilirubin 0.8 mg/dL (0.2-1.3) AST 22 U/L (14-36) ALT 17 U/L (6-35) Alkaline Phosphatase 58 U/L (38-126) Total Protein 7.0 g/dL (6.3-8.2) Albumin 3.9 g/dL (3.5-5.1) Lipase 81 U/L (23-300) Urine Color Yellow (Yellow) Urine Appearance Clear (Clear) Urine pH 6.5 (5.0-9.0) Ur Specific [place] 1.020 (1.001-1.035) Urine Protein Negative mg/dL (Negative) Urine Glucose (UA) Negative mg/dL (Negative) Urine Ketones Negative mg/dL (Negative) Ur Blood (Man) Negative (Negative) Urine Nitrate Negative (Negative) Urine Bilirubin Negative (Negative) Urine Urobilinogen 0.2 mg/dL (<2.0) Leukocyte Esterase Rfl Negative MOISÉS/UL (Negative) POC Urine HCG, Qual Negative (Negative) Patient hx anesthesia problems: none Family hx anesthesia problems: none Results Review: All pre-operative results and documents have been reviewed as part of the pre- operative evaluation. [facility] Past Medical History Medical History Allergies IUD (intrauterine device) in place Family History Family History Father Afib Sibling Asthma Sibling Brain cancer Social History Social History Social History: Smoking status: Never smoker Alcohol intake: current Substance use: never Substance use type: does not use Lack of Transportation: No Lack of Food: Never True Current Housing: I Have Housing Concerned About Future Housing: No Difficulty Paying Gas/Electric Bills: No Difficulty Paying for Meds: No Currently Unemployed: No Education: Associate Degree Difficulty w/ Childcare or Family Care: No Living arrangements: with family Additional living arrangements comments: Linda Barone Final PreProcedure Day of Procedure 05/07/25 13:09 Patient weight: thin Heart: regular rate and rhythm Lungs: clear to auscultation Airway: Mallampati scale class II Neurological: alert and oriented Last oral intake: >/= 8 hours ASA classification: II Emergent: no Anesthetic plan: proceed Anesthesia type and monitoring: general ETT and standard monitoring Results Review: All pre-operative results and documents have been reviewed as part of the pre- operative evaluation. Informed Consent: The patient's anesthetic plan and its attendant risks and benefits were discussed with the patient/family/POA. Questions were solicited and answers provided to the satisfaction of the patient/family/POA.
[2025-05-07] MEDS: SCOPOLAMINE 1 MG PATCH 1 PATCH TRANSDERM (13:24)
--- NOTE | 2025-05-07 13:52 | S_PTH ---
PATIENT: Jennifer Park LOC: [facility] U#:[id number] AGE/SX: 44/F ROOM: RE05/07/[address]: Luz Yang MD : 1980 BED: DIS: 05/07/2025 SPEC #: [id number] RECD: 05/08/25 08:06 STATUS: LEWIS RELiban #: [id number] NIKITA: 05/07/25 13:[address]: Luz Yang DEPT: [facility] [place] Surgical RECD BY: Kiara Palencia ENTERED: 05/08/25 08:06 SP TYPE: Surgical OTHR DR: Cristian Rodriguez MD Tissues: A - Appendix Procedures: Hematoxylin and Eosin Stain Gross and Microscopic Level 3
[2025-05-07] MEDS: BUPIVACAINE/EPINEPHRINE 0.5% 50 ML VIAL 30 ML INFILTRATE (13:59)
--- NOTE | 2025-05-07 14:13 | W.PM.PROC2 ---
Procedure Note - Detailed Date of Procedure 05/07/25 Pre-op Diagnosis acute appendicitis Post-op Diagnosis Same Procedure Performed laparoscopic appendectomy Surgeon Luz Yang MD Anesthesia General Indications 44-year-old female presenting to the emergency department with acute appendicitis Findings acute appendicitis no evidence of perforation Description of Procedure The patient was taken to the operating room and placed in the supine position. After adequate induction of general anesthesia, the patient was prepped and draped in the normal sterile fashion. A time-out was then done to verify the patient's identity, as well as the procedure being performed. I began by making a 5 mm incision in the infraumbilical region, through this a Veress needle was placed in the peritoneal cavity. CO2 gas was then insufflated and after adequate pneumoperitoneum was achieved the Veress needle was removed. Then placed a 5 mm Optiview trocar under direct visualization into the peritoneal cavity. I then insufflated through this trocar site and the endoscope was placed into the trocar. Under direct visualization, placed 2x further ports, a 5 mm suprapubic port as well as an additional 12 mm port in the left lower abdomen. At this point identified the cecum, I retracted the cecum both medially and superiorly allowing me to expose the appendix. The appendix was noted to be dilated and inflamed. The appendix was noted to be very adherent to the right lateral sidewall as well as the ileum. I was able to bluntly dissect the appendix from these adhesions. I then was able to locate the base of the appendix with the cecum. I created a window with the [place] dissector between the appendix itself and the mesoappendix. I then transected the mesoappendix with a white vascular staple load. The Endo-KYLER was then reloaded with a blue staple load and I transected the base of the appendix. Once the specimen was completely detached, an endo-pouch was placed into the 12 mm port site and the specimen was removed through the endo-pouch. The appendiceal specimen will be sent to pathology for further review. I then copiously irrigated the right lower quadrant. Hemostasis was noted at both staple lines no other pathology was seen in this area. I then moved the camera to the suprapubic port to check our its port of entry. No iatrogenic injury or other pathology was noted in the upper abdomen. I then closed the 12 mm port site with a Sonny code and 0 Vicryl suture under direct visualization. At this point, the abdomen was desufflated and all ports were removed. All port sites were closed with 4 Monocryl subcuticular suture. Dermabond was placed on all wounds. The patient tolerated the procedure well and was extubated in the operating room postop. She will be sent to the recovery room in stable condition. Estimated Blood Loss 10 Drains No Packing No Pathology Yes Complications No immediate complications Condition Stable Disposition PACU [facility] Billing Surgery - Charge Forward: Surgery Billing
== END 2025-05-07 16:18 | disposition home or self-care (01) ==
LOC: ANHED 09:13 → ANHSURGERY 09:45
PROVIDERS: Emergency Provider Student in an Organized Health Care Education/Training Program; PCP Obstetrics & Gynecology; Visit Provider Surgery
PROC: 0DTJ4ZZ Resection of Appendix, Percutaneous Endoscopic Approach (ICD-10-PCS; CPT 44970; principal; 2025-05-07 13:30)
DX: K36 Other appendicitis (principal); K38.8 Other specified diseases of appendix; Z97.5 Presence of (intrauterine) contraceptive device; Z80.8 Family history of malignant neoplasm of other organs or systems; Z82.49 Family history of ischemic heart disease and other diseases of the circulatory system
CPT/HCPCS: 44970; 36415; 74177; 80053; 81003; 81025; 83690; 85025; 88304; 96361; 96365; 99285; A9270; J1100; J2003; J2250; J2270; J2405; J2543; J2704; J7030; J7120; Q9967